=== PATIENT | male | born 1975 | race American Indian/Alaskan Native ===

== ENCOUNTER 2017-08-08 15:31 | Inpatient (IN) | payer OTHER ==
[2017-08-08 16:08] VITALS: BMI 26.9
[2017-08-08 16:29] VITALS: RESP 20
[2017-08-08] MEDS: methylPREDNISolone 125 MG in Sodium Chloride 0.9% 50 ML IVPB SCH (19:32)
[2017-08-08] MEDS ORDERED: methylPREDNISolone 40 MG in Sodium Chloride 0.9% 50 ML IVPB SCH (21:00)
[2017-08-09] MEDS: methylPREDNISolone 125 MG in Sodium Chloride 0.9% 50 ML IVPB SCH ×3 (00:32→17:25)
[2017-08-09] MEDS: Enoxaparin 40 mg Syringe SC SCH (08:55)
--- NOTE | 2017-08-09 12:05 | RAD ---
HISTORY: protocol COMPARISON: No prior. TECHNIQUE: Poor inspiration with low lung volumes, mild crowded bronchovascular markings and mild bibasilar atelectasis. FINDINGS: LUNGS: No active pulmonary disease. PLEURA: No significant pleural effusion identified. No pneumothorax apparent. CARDIOVASCULAR: Normal. OSSEOUS STRUCTURES: Minimal degenerative spondylosis of the thoracic spine VISUALIZED UPPER ABDOMEN: Normal. OTHER FINDINGS: None. IMPRESSION: Poor inspiration with low lung volumes, mild crowded bronchovascular markings and mild bibasilar atelectasis.
--- NOTE | 2017-08-09 12:35 | CP.PCM.HP ---
History of Present Illness - History of Present Illness History of Present Illness: Patient is a 42 yo gentleman with no PMH. In the past 4 weeks he started to c/ o a severe, progressive and debilitating back pain. He was seen in ER and DC an MRI was performed and the recommendation was to repeat a contrast MRI as OP. Patient was scheduled for the test when his condition became worse. He poorly responded to multiple drug (analgesic) rx.At present he is not able to ambulate , with an exacerbation of the lumbago while he standing. An MRI reveled a severe nerve compression with edema. Started on iv steroid and PT at present he deferred any surgical intervention. Will follow in TCU. Present on Admission - Present on Admission Any Indicators Present on Admission: No Review of Systems - Constitutional Constitutional: As Per HPI - EENT Eyes: As Per HPI - Cardiovascular Cardiovascular: As Per HPI - Respiratory Respiratory: As Per HPI - Gastrointestinal Gastrointestinal: As Per HPI - Genitourinary Genitourinary: As Per HPI - Reproductive: Male Reproductive:Male: As Per HPI - Musculoskeletal Musculoskeletal: As Per HPI - Integumentary Integumentary: As Per HPI - Neurological Neurological: As Per HPI Past Patient History - Past Medical History & Family History Past Medical History?: Yes - Past Social History Smoking Status: Never Smoked - HEMATOLOGICAL/ONCOLOGICAL Hx Human Immunodeficiency Virus (HIV): No - MUSCULOSKELETAL/RHEUMATOLOGICAL Hx Back Pain: Yes Hx Falls: No Hx Herniated Disk: Yes Other/Comment: lumbar nerve root impingement. lumbar radiculopathy - PSYCHIATRIC Hx Substance Use: No - SURGICAL HISTORY Hx Surgeries: No - ANESTHESIA Hx Anesthesia: No Hx Anesthesia Reactions: No Meds Allergies/Adverse Reactions: Allergies Allergy/AdvReac Type Severity Reaction Status Date / Time oxycodone Allergy ITCHING Verified 08/08/17 16:06 Penicillins Allergy ITCHING Verified 08/08/17 16:07 Physical Exam - Constitutional Appears: Non-toxic - Head Exam Head Exam: ATRAUMATIC, NORMAL INSPECTION, NORMOCEPHALIC - Eye Exam Eye Exam: Normal appearance - ENT Exam ENT Exam: Mucous Membranes Moist - Respiratory Exam Respiratory Exam: Clear to Auscultation Bilateral - Cardiovascular Exam Cardiovascular Exam: REGULAR RHYTHM, +S1, +S2 - GI/Abdominal Exam GI & Abdominal Exam: Normal Bowel Sounds - Neurological Exam Neurological exam: Alert, CN II-XII Intact, Oriented x3 - Psychiatric Exam Psychiatric exam: Normal Affect - Skin Skin Exam: Normal Color Results - Vital Signs Recent Vital Signs: Last Vital Signs Temp 97.3 F L 08/09/17 08:17 Pulse 75 08/09/17 08:17 Resp 20 08/09/17 08:17 BP 124/79 08/09/17 08:17 Pulse Ox 96 08/09/17 08:17 Assessment & Plan (1) Debility Status: Acute (2) Physical debility Status: Acute (3) Intractable back pain Status: Acute (4) Intractable hiccups Status: Acute (5) Low back pain Status: Acute (6) Lumbar nerve root impingement Status: Acute (7) Lumbar radiculopathy, acute Status: Acute (8) Sciatica Status: Acute - Assessment and Plan (Free Text) Plan: Continue conservative rx. Will follow neuro and neurosurgery consults.
[2017-08-09 13:33] LABS: HEMATOCRIT 46.2 % (35.0-51.0); MEAN CELL VOLUME 84.6 fl (80.0-94.0); MEAN CORPUSCULAR HGB CONC 33.1 g/dL (33.0-37.0); RED CELL DISTRIBUTION WIDTH 14.1 % (11.5-14.5); WHITE BLOOD COUNT 22.2 K/uL (4.8-10.8)
[2017-08-09 13:44] LABS: BLOOD UREA NITROGEN 25 mg/dl (9-20); CALCIUM 8.8 mg/dL (8.4-10.2); CARBON DIOXIDE 26 mmol/L (22-30); CHLORIDE 99 mmol/L (98-107); GFR AFRICAN-AMERICAN > 60; GLUCOSE,RANDOM 223 mg/dL (75-110); POTASSIUM 3.9 MMOL/L (3.6-5.0); SODIUM 137 mmol/l (132-148)
[2017-08-10] MEDS: methylPREDNISolone 125 MG in Sodium Chloride 0.9% 50 ML IVPB SCH ×2 (00:26→09:07)
[2017-08-10] MEDS: Enoxaparin 40 mg Syringe SC SCH (08:58)
[2017-08-10] MEDS ORDERED: methylPREDNISolone 60 MG in Sodium Chloride 0.9% 50 ML IVPB SCH (11:31)
--- NOTE | 2017-08-10 14:39 | CP.PCM.PN ---
Subjective - Date & Time of Evaluation Date of Evaluation: 08/10/17 Time of Evaluation: 14:41 - Subjective Subjective: Patient less symptomatic. The case discussed with the neuro surgery and the patient. The patient is aware of severe side effect of steroid and that is only a temporary solution to his condition. A the present he deferred the surgical intervention, he was educated by me and the neurosurgeon about the possible severe neuro deficit. Will champ down the steroid and follow the patient clinically. Objective - Vital Signs/Intake and Output Vital Signs (last 24 hours): Temp Pulse Resp BP Pulse Ox 97.7 F 82 20 139/44 L 97 08/10/17 08:22 08/10/17 08:22 08/10/17 08:22 08/10/17 08:22 08/10/17 08:22 - Medications Medications: Current Medications Chlorpromazine (Thorazine) 50 mg IM ONCE PRN PRN Reason: Hiccups Last Admin: 08/08/17 21:34 Dose: 50 mg Cyclobenzaprine HCl (Flexeril) 5 mg PO TID [facility] Last Admin: 08/10/17 12:43 Dose: 5 mg Diazepam (Valium) 5 mg PO HS [facility] Last Admin: 08/09/17 22:06 Dose: 5 mg Enoxaparin Sodium (Lovenox) 40 mg SC DAILY [facility] PRN Reason: Protocol Last Admin: 08/10/17 08:58 Dose: 40 mg Famotidine (Pepcid) 20 mg PO BID [facility] Last Admin: 08/10/17 08:57 Dose: 20 mg Methylprednisolone 60 mg/ (Sodium Chloride) 50 mls @ 100 mls/hr IVPB Q8 [facility] Stop: 08/10/17 23:59 Ibuprofen (Motrin Tab) 600 mg PO TID [facility] Last Admin: 08/10/17 12:44 Dose: 600 mg - Labs Labs: 08/09/17 13:15 08/09/17 13:15 - Constitutional Appears: Non-toxic - Head Exam Head Exam: ATRAUMATIC, NORMAL INSPECTION, NORMOCEPHALIC - Eye Exam Eye Exam: Normal appearance - Neck Exam Neck Exam: Full ROM - Respiratory Exam Respiratory Exam: Clear to Ausculation Bilateral - Cardiovascular Exam Cardiovascular Exam: REGULAR RHYTHM, +S1, +S2 - GI/Abdominal Exam GI & Abdominal Exam: Normal Bowel Sounds - Neurological Exam Neurological Exam: Abnormal Gait, Alert, Awake, Oriented x3 - Psychiatric Exam Psychiatric exam: Normal Affect - Skin Skin Exam: Normal Color Assessment and Plan (1) Debility Status: Acute (2) Physical debility Status: Acute (3) Intractable back pain Status: Acute (4) Intractable hiccups Status: Acute (5) Low back pain Status: Acute (6) Lumbar nerve root impingement Status: Acute (7) Lumbar radiculopathy, acute Status: Acute (8) Sciatica Status: Acute - Assessment and Plan (Free Text) Plan: As above
--- NOTE | 2017-08-10 19:27 | CP.PCM.PN ---
Subjective - Date & Time of Evaluation Date of Evaluation: 08/10/17 Time of Evaluation: 19:28 - Subjective Subjective: LEFT L3 RADICULOPATHY REMARKABLE RECOVERY WITH STERIOIDS EXAM ALMOST NORMAL AGREE WITH TAPERING DOSE FOLLOW UP OP FOR EMG CONTINUE PT Objective - Vital Signs/Intake and Output Vital Signs (last 24 hours): Temp Pulse Resp BP Pulse Ox 98.1 F 86 20 122/70 98 08/10/17 17:04 08/10/17 17:04 08/10/17 17:04 08/10/17 17:04 08/10/17 17:04 - Medications Medications: Current Medications Chlorpromazine (Thorazine) 50 mg IM ONCE PRN PRN Reason: Hiccups Last Admin: 08/08/17 21:34 Dose: 50 mg Cyclobenzaprine HCl (Flexeril) 5 mg PO TID [facility] Last Admin: 08/10/17 16:17 Dose: 5 mg Diazepam (Valium) 5 mg PO HS [facility] Last Admin: 08/09/17 22:06 Dose: 5 mg Enoxaparin Sodium (Lovenox) 40 mg SC DAILY [facility] PRN Reason: Protocol Last Admin: 08/10/17 08:58 Dose: 40 mg Famotidine (Pepcid) 20 mg PO BID [facility] Last Admin: 08/10/17 16:16 Dose: 20 mg Methylprednisolone 60 mg/ (Sodium Chloride) 50 mls @ 100 mls/hr IVPB Q8 [facility] Stop: 08/10/17 23:59 Last Admin: 08/10/17 17:00 Dose: 100 mls/hr Ibuprofen (Motrin Tab) 600 mg PO TID [facility] Last Admin: 08/10/17 16:16 Dose: 600 mg - Labs Labs: 08/09/17 13:15 08/09/17 13:15
--- NOTE | 2017-08-11 03:35 | PN ---
DATE: 08/10/2017 SUBJECTIVE: The patient was initially evaluated in [facility] for his acute herniated disk compressing the left L3 root. The patient was treated symptomatically with high dose steroids, which has been more than 80% better in 2 days treatment. The patient was transferred to rehab center in [facility]. The patient is ambulatory without any assistants. Pain almost gone. PHYSICAL EXAMINATION: EXTREMITIES: Deep tendon reflexes are intact. He could able to sit and get up on his own. He could able to squad by himself. He could be able to walk on heel as well as toes. No sensory deficit noted. RECOMMENDATION: 1. The patient still on steroid tapering dose. I would like to continue where the primary care physician is tapering the dose. 2. Continue physical therapy to strengthen his L3 muscle groups by doing bicycling (stationary bike) could be helping him more. When medically stable, the patient can be discharge and should have been followup with me with outpatient for electrodiagnostic studies to further accessing his neurological problem. Considering his remarkable recovery, the patient is not a candidate for neurosurgery at present. Cirilo Gudino MD
[2017-08-11] MEDS: Enoxaparin 40 mg Syringe SC SCH (10:11)
[2017-08-11] MEDS: methylPREDNISolone 40 MG in Sodium Chloride 0.9% 50 ML IV SCH ×2 (11:36→16:45)
[2017-08-11] MEDS ORDERED: methylPREDNISolone 40 MG in Sodium Chloride 0.9% 50 ML IV SCH (21:00)
[2017-08-12 07:00] LABS: HEMATOCRIT 42.2 % (35.0-51.0); MEAN CELL VOLUME 83.8 fl (80.0-94.0); MEAN CORPUSCULAR HEMOGLOBIN 28.3 pg (27.0-31.0); MEAN CORPUSCULAR HGB CONC 33.8 g/dL (33.0-37.0); RED CELL DISTRIBUTION WIDTH 13.9 % (11.5-14.5); WHITE BLOOD COUNT 18.8 K/uL (4.8-10.8)
[2017-08-12 07:07] LABS: BLOOD UREA NITROGEN 21 mg/dl (9-20); CALCIUM 8.7 mg/dL (8.4-10.2); CARBON DIOXIDE 28 mmol/L (22-30); CHLORIDE 98 mmol/L (98-107); GFR AFRICAN-AMERICAN > 60; GLUCOSE,RANDOM 214 mg/dL (75-110); POTASSIUM 4.3 MMOL/L (3.6-5.0); SODIUM 134 mmol/l (132-148)
[2017-08-12] MEDS: methylPREDNISolone 40 MG in Sodium Chloride 0.9% 50 ML IV SCH (08:49)
[2017-08-12] MEDS: Enoxaparin 40 mg Syringe SC SCH (08:52)
--- NOTE | 2017-08-12 13:16 | CP.PCM.PN ---
Subjective - Date & Time of Evaluation Date of Evaluation: 08/12/17 Time of Evaluation: 13:16 - Subjective Subjective: DC iv steroid, on oral steroid. Will follow clinically.Continue present rx. Objective - Vital Signs/Intake and Output Vital Signs (last 24 hours): Temp Pulse Resp BP Pulse Ox 97.7 F 60 20 129/65 100 08/12/17 08:08 08/12/17 08:08 08/12/17 08:08 08/12/17 08:08 08/12/17 08:08 - Medications Medications: Current Medications Chlorpromazine (Thorazine) 50 mg IM ONCE PRN PRN Reason: Hiccups Last Admin: 08/08/17 21:34 Dose: 50 mg Cyclobenzaprine HCl (Flexeril) 5 mg PO TID [facility] Last Admin: 08/12/17 12:05 Dose: 5 mg Diazepam (Valium) 5 mg PO HS [facility] Last Admin: 08/11/17 21:30 Dose: 5 mg Famotidine (Pepcid) 20 mg PO BID [facility] Last Admin: 08/12/17 08:51 Dose: 20 mg Ibuprofen (Motrin Tab) 600 mg PO TID [facility] Last Admin: 08/12/17 12:05 Dose: 600 mg Prednisone (Prednisone Tab) 40 mg PO DAILY [facility] Last Admin: 08/12/17 12:05 Dose: 40 mg - Labs Labs: 08/12/17 06:45 08/12/17 06:45 - Constitutional Appears: Well - Head Exam Head Exam: ATRAUMATIC, NORMAL INSPECTION, NORMOCEPHALIC - Eye Exam Eye Exam: Normal appearance - ENT Exam ENT Exam: Mucous Membranes Moist - Neck Exam Neck Exam: Full ROM - Respiratory Exam Respiratory Exam: Clear to Ausculation Bilateral - Cardiovascular Exam Cardiovascular Exam: REGULAR RHYTHM - GI/Abdominal Exam GI & Abdominal Exam: Soft, Normal Bowel Sounds - Neurological Exam Neurological Exam: Alert, Awake, CN II-XII Intact, Oriented x3 - Psychiatric Exam Psychiatric exam: Normal Affect - Skin Skin Exam: Normal Color Assessment and Plan (1) Debility Status: Acute (2) Physical debility Status: Acute (3) Intractable back pain Status: Acute (4) Intractable hiccups Status: Acute (5) Low back pain Status: Acute (6) Lumbar nerve root impingement Status: Acute (7) Lumbar radiculopathy, acute Status: Acute (8) Sciatica Status: Acute - Assessment and Plan (Free Text) Plan: Continue present rx.
--- NOTE | 2017-08-13 15:17 | CP.PCM.DIS ---
Provider - Provider Date of Admission: 08/08/17 16:08 Attending physician: Leonardo Koo MD Time Spent in preparation of Discharge (in minutes): 30 Diagnosis - Discharge Diagnosis (1) Debility Status: Acute (2) Physical debility Status: Acute (3) Intractable back pain Status: Acute (4) Intractable hiccups Status: Acute (5) Low back pain Status: Acute (6) Lumbar nerve root impingement Status: Acute (7) Lumbar radiculopathy, acute Status: Acute (8) Sciatica Status: Acute Hospital Course - Lab Results Lab Results: Most Recent Lab Values WBC 18.8 K/uL (4.8-10.8) H 08/12/17 06:45 RBC 5.04 Mil/uL (4.40-5.90) 08/12/17 06:45 Hgb 14.3 g/dL (12.0-18.0) 08/12/17 06:45 Hct 42.2 % (35.0-51.0) 08/12/17 06:45 MCV 83.8 fl (80.0-94.0) 08/12/17 06:45 MCH 28.3 pg (27.0-31.0) 08/12/17 06:45 MCHC 33.8 g/dL (33.0-37.0) 08/12/17 06:45 RDW 13.9 % (11.5-14.5) 08/12/17 06:45 Plt Count 250 K/uL (130-400) 08/12/17 06:45 Sodium 134 mmol/l (132-148) 08/12/17 06:45 Potassium 4.3 MMOL/L (3.6-5.0) 08/12/17 06:45 Chloride 98 mmol/L (98-107) 08/12/17 06:45 Carbon Dioxide 28 mmol/L (22-30) 08/12/17 06:45 Anion Gap 12 (10-20) 08/12/17 06:45 BUN 21 mg/dl (9-20) H 08/12/17 06:45 Creatinine 0.9 mg/dL (0.8-1.5) 08/12/17 06:45 Est GFR ( Amer) > 60 08/12/17 06:45 Est GFR (Non-Af Amer) > 60 08/12/17 06:45 Random Glucose 214 mg/dL (75-110) H 08/12/17 06:45 Calcium 8.7 mg/dL (8.4-10.2) 08/12/17 06:45 - Hospital Course Hospital Course: Patient is a 42 yo gentleman with no PMH. In the past 4 weeks he started to c/ o a severe, progressive and debilitating back pain. He was seen in ER and DC an MRI was performed and the recommendation was to repeat a contrast MRI as OP. Patient was scheduled for the test when his condition became worse. He poorly responded to multiple drug (analgesic) rx.At present he is not able to ambulate , with an exacerbation of the lumbago while he standing. An MRI reveled a severe nerve compression with edema. Started on iv steroid and PT at present still deferred any surgical intervention. He well responded to present rx. Will dc home. Discharge Exam - Head Exam Head Exam: ATRAUMATIC, NORMAL INSPECTION, NORMOCEPHALIC - Eye Exam Eye Exam: Normal appearance - Respiratory Exam Respiratory Exam: Clear to PA & Lateral, NORMAL BREATHING PATTERN - Cardiovascular Exam Cardiovascular Exam: REGULAR RHYTHM, +S1, +S2 - GI/Abdominal Exam GI & Abdominal Exam: Normal Bowel Sounds - Neurological Exam Neurological exam: Alert, CN II-XII Intact, Normal Gait, Oriented x3, Reflexes Normal - Psychiatric Exam Psychiatric exam: Normal Affect - Skin Skin Exam: Normal Color Discharge Plan - Follow Up Plan Condition: GOOD Disposition: HOME/ ROUTINE
[2017-08-13 16:46] VITALS: BP 130/82; PULSE 86; TEMP 98.4; O2SAT 93
== END 2017-08-13 17:30 | disposition home or self-care (01) | DRG 946 ==
LOC: H.TCU 16:08
PROVIDERS: ADMIT Internal Medicine; ATTEND Internal Medicine
PROC: F07Z9ZZ Gait Training/Functional Ambulation Treatment (ICD-10-PCS; principal; 2017-08-08)
PROC: F08Z4ZZ Home Management Treatment (ICD-10-PCS; 2017-08-08)
PROC: F08Z1FZ Dressing Techniques Treatment using Assistive, Adaptive, Supportive or Protective Equipment (ICD-10-PCS; 2017-08-08)
PROC: F08Z0FZ Bathing/Showering Techniques Treatment using Assistive, Adaptive, Supportive or Protective Equipment (ICD-10-PCS; 2017-08-08)
DX: R53.81 Other malaise (principal); M51.16 Intervertebral disc disorders with radiculopathy, lumbar region; Z88.5 Allergy status to narcotic agent; Z88.0 Allergy status to penicillin; R06.6 Hiccough